=== PATIENT | male | born 1940 | race Two or more races ===

== ENCOUNTER 2023-05-03 11:51 | Outpatient (CLI) | payer MEDICARE, BC | END 2023-05-03 11:52 | disposition home or self-care (01) | LOC: CT 11:51 | PROVIDERS: ATTEND Psychiatry & Neurology Neurology | DX: I63.9 Cerebral infarction, unspecified (principal); I67.82 Cerebral ischemia; G93.89 Other specified disorders of brain; R90.82 White matter disease, unspecified; R09.89 Other specified symptoms and signs involving the circulatory and respiratory systems | CPT/HCPCS: 70450 ==

== ENCOUNTER 2024-02-21 21:53 | Inpatient (IN) | payer BC, MEDICARE ==
[~2024-02-21 21:53] MED LIST: Iopamidol-370 76% 500 ML MDV (1 ML CHARGE) ONE
[2024-02-21 22:48] LABS: #Basophils Less than 0.03 10x3/uL (0.0-0.2); %Basophils 0.5 % (0.0-1.0); %Eosinophils 3.4 % (0.0-10.0); %Neutrophils 51.9 % (42.0-75.0); Hematocrit 40.4 % (42.0-52.0); Hemoglobin 13.1 g/dL (14.0-18.0); Mean Corpuscular HGB CONC 32.4 g/dL (32.0-36.0); Mean Corpuscular Hemoglobin 30.8 pg (27.0-31.0); Mean Corpuscular Volume 95.1 fL (78.0-98.0); Mean Platelet Volume 10.4 fL (7.4-10.4); Platelet Count 150 10x3/uL (130-400); RBC Distribution Width 14.1 % (11.5-14.5); Red Blood Cell (RBC) Count 4.25 mill/uL (4.70-6.10)
[2024-02-21 23:01] LABS: INR-International Normal Ratio 1.1; PTT 40.8 sec (22.9-36.1); Prothrombin Time 14.5 sec (12.0-14.7)
[2024-02-21 23:02] LABS: ALT (SGPT) 15 U/L (8-55); AST (SGOT) 18 U/L (5-34); Albumin 3.6 g/dL (3.4-4.8); Alkaline Phosphatase 56 U/L (40-110); Anion Gap 12 mmol/L (10-20); BUN (Urea Nitrogen) 19 mg/dL (8.4-25.7); Bilirubin, Total 0.3 mg/dL (0.2-1.2); Calc. Creatinine Clearance 0 mL/min (70-130); Calcium 9.2 mg/dL (7.8-10.44); Carbon Dioxide 24 mmol/L (23-31); Chloride 106 mmol/L (98-107); Estimated GFR 64; Globulin 3.7 g/dL (2.4-3.5); Glucose 127 mg/dL (83-110); Magnesium 1.8 mg/dL (1.6-2.6); Potassium 3.7 mmol/L (3.5-5.1); Protein, Total 7.3 g/dL (5.8-8.1); Sodium 138 mmol/L (136-145)
[2024-02-21 23:06] LABS: Troponin I 0.018 ng/mL (< 0.028)
[2024-02-22] MEDS ORDERED: Ondansetron ODT 4 MG TAB PO PRN (00:41)
[2024-02-22] MEDS ORDERED: Ondansetron PF 4 MG/2 ML Vial IVP PRN (00:41)
[2024-02-22] MEDS ORDERED: Dextrose 5% in Water 1,000 ML IV PRN (01:15)
[2024-02-22] MEDS ORDERED: Dextrose 50% Abboject 50 ML SYRINGE SLOW IVP PRN (01:15)
[2024-02-22] MEDS ORDERED: HumaLOG 300 UNITS/3 ML VIAL SC PRN ×2 (01:15)
[2024-02-22] MEDS ORDERED: Glucagon 1 MG/ML KIT IM PRN (01:15)
[2024-02-22] MEDS ORDERED: Aspirin Chewable 81 MG TAB ONE ×2 (01:32→01:39)
[2024-02-22 01:56] LABS: #Basophils 0.03 10x3/uL (0.0-0.2); %Basophils 0.8 % (0.0-1.0); %Eosinophils 3.4 % (0.0-10.0); %Lymphocytes 36.2 % (21.0-51.0); %Monocytes 11.1 % (0.0-10.0); %Neutrophils 48.2 % (42.0-75.0); Hematocrit 40.4 % (42.0-52.0); Hemoglobin 12.9 g/dL (14.0-18.0); Mean Corpuscular HGB CONC 31.9 g/dL (32.0-36.0); Mean Corpuscular Hemoglobin 30.4 pg (27.0-31.0); Mean Corpuscular Volume 95.3 fL (78.0-98.0); Platelet Count 134 10x3/uL (130-400); RBC Distribution Width 13.9 % (11.5-14.5); Red Blood Cell (RBC) Count 4.24 mill/uL (4.70-6.10)
[2024-02-22 02:15] LABS: Troponin I 0.023 ng/mL (< 0.028)
[2024-02-22 02:36] LABS: ALT (SGPT) 14 U/L (8-55); AST (SGOT) 17 U/L (5-34); Albumin 3.5 g/dL (3.4-4.8); Alkaline Phosphatase 53 U/L (40-110); Anion Gap 11 mmol/L (10-20); BUN (Urea Nitrogen) 19 mg/dL (8.4-25.7); Bilirubin, Total 0.4 mg/dL (0.2-1.2); Calc. Creatinine Clearance 0 mL/min (70-130); Calcium 9.1 mg/dL (7.8-10.44); Carbon Dioxide 22 mmol/L (23-31); Cardiac Risk 2.7 (Less than 4.5); Chloride 106 mmol/L (98-107); Cholesterol 95 mg/dl (< 200 Desired); Estimated GFR 77; Globulin 3.5 g/dL (2.4-3.5); Glucose 100 mg/dL (83-110); HDL Cholesterol 35 mg/dL (>60 Neg Risk); LDL Cholesterol, Calculated 52 mg/dL; Potassium 3.8 mmol/L (3.5-5.1); Sodium 135 mmol/L (136-145); Triglycerides 38 mg/dL (Less than 150)
[2024-02-22 04:09] VITALS: BMI 26.1
[2024-02-22 06:20] LABS: Troponin I 0.025 ng/mL (< 0.028)
[2024-02-22] MEDS: Enoxaparin 30 MG (0.3 mL) SYRINGE SC SCH (10:11)
[2024-02-22] MEDS: DULoxetine 20 MG CAP PO SCH (10:11)
[2024-02-22] MEDS: Aspirin 81 mg Enteric Coated Tablet PO SCH (10:11)
[2024-02-22] MEDS: Flecainide 50 MG TAB PO SCH (10:11)
[2024-02-22] MEDS: Carvedilol 25 MG TAB PO SCH (16:31)
[2024-02-22] MEDS: Atorvastatin Calcium 40 MG TAB PO SCH (20:20)
[2024-02-23] MEDS: Enoxaparin 40 MG (0.4 mL) SYRINGE SC SCH (08:44)
[2024-02-23 17:52] LABS: #Basophils Less than 0.03 10x3/uL (0.0-0.2); %Basophils 0.6 % (0.0-1.0); %Eosinophils 2.9 % (0.0-10.0); %Lymphocytes 31.4 % (21.0-51.0); %Monocytes 10.6 % (0.0-10.0); %Neutrophils 54.5 % (42.0-75.0); Hematocrit 38.8 % (42.0-52.0); Hemoglobin 12.9 g/dL (14.0-18.0); Mean Corpuscular HGB CONC 33.2 g/dL (32.0-36.0); Mean Corpuscular Hemoglobin 30.9 pg (27.0-31.0); Mean Corpuscular Volume 92.8 fL (78.0-98.0); Mean Platelet Volume 10.8 fL (7.4-10.4); Platelet Count 139 10x3/uL (130-400); RBC Distribution Width 13.6 % (11.5-14.5); Red Blood Cell (RBC) Count 4.18 mill/uL (4.70-6.10)
[2024-02-23 18:02] LABS: Anion Gap 13 mmol/L (10-20); BUN (Urea Nitrogen) 14 mg/dL (8.4-25.7); Calc. Creatinine Clearance 59 mL/min (70-130); Calcium 8.9 mg/dL (7.8-10.44); Carbon Dioxide 26 mmol/L (23-31); Chloride 104 mmol/L (98-107); Estimated GFR 65; Glucose 110 mg/dL (83-110); Sodium 139 mmol/L (136-145)
[2024-02-24] MEDS: Clopidogrel Bisulfate 75 MG TAB PO SCH (18:14)
[2024-02-26] MEDS: Amlodipine 5 MG TAB PO SCH (09:34)
[2024-02-26] MEDS: Empagliflozin 10 MG TAB PO SCH (09:34)
[2024-02-26] MEDS ORDERED: Insulin Lispro 100 UNIT/ML 10 ML VIAL SC PRN ×2 (16:30)
[2024-02-26 23:50] VITALS: BP 131/63; TEMP 98.9
== END 2024-02-26 19:32 | DRG 69 ==
LOC: ERS 21:53 → 2NO 02-22 00:44 → OBSVTOIN 02-25 14:12
PROVIDERS: ADMIT Internal Medicine; ATTEND Internal Medicine
DX: G45.9 Transient cerebral ischemic attack, unspecified (principal); I10 Essential (primary) hypertension; E78.5 Hyperlipidemia, unspecified; F32.A Depression, unspecified; E11.9 Type 2 diabetes mellitus without complications; I48.0 Paroxysmal atrial fibrillation; G47.33 Obstructive sleep apnea (adult) (pediatric); Z95.0 Presence of cardiac pacemaker; Z99.3 Dependence on wheelchair
CPT/HCPCS: 36415; 36416; 70450; 70496; 70498; 71045; 80048; 80053; 80061; 83735; 84443; 84484; 85025; 85610; 85730; 93005; 93306; 96372; G0378; J1650; J1815; Q9967